=== PATIENT | female | born 1990 | race Caucasian/White ===

== ENCOUNTER → 2020-12-21 | Outpatient (CLI) | payer BC, MEDICAID ==
[~2020-12-21] MED LIST: TOPAMAX 100MG100 M1 PO
== END ==
LOC: COL.RAD 12-05 12:45
DX: N30.20 Other chronic cystitis without hematuria (principal)

== ENCOUNTER 2021-01-08 20:47 | Emergency (ER) | payer BC, MEDICAID ==
[~2021-01-08] VITALS: Ht 165.1 cm; Wt 77.3 kg
[2021-01-08 21:20] VITALS: TEMP 97.8
[2021-01-08 23:47] LABS: BASO # 0.1 (0.0-0.2); BASO % 0.9 % (0.0-2.0); EOS # 0.4 (0.0-0.7); EOS % 3.6 % (0-4.0); GRAN # 5.5 (1.4-6.5); HEMATOCRIT 38.9 % (37.0-47.0); HEMOGLOBIN 12.9 g/dl (12.5-16.0); LYMPH % 31.2 % (20.0-51.0); MEAN CELL VOLUME 93 fl (80.0-100.0); MEAN CORPUSCULAR HEMOGLOBIN 31 pg (27.0-31.0); MEAN CORPUSCULAR HGB CONC 33 g/dl (33.0-37.0); MEAN PLATELET VOLUME 9.9 fl (7.4-10.4); MONO # 0.7 (0.1-0.6); PLATELET COUNT 224 K/mm3 (130-400); RED BLOOD COUNT 4.17 M/mm3 (4.10-5.30); REDCELL DISTRIBUTION WIDTH-CV 13.2 % (11.5-14.5)
[2021-01-09] MEDS ORDERED: TOPAMAX 100MG100 M1 PO (00:04)
[2021-01-09 00:59] VITALS: BP 112/67; PULSE 82
== END 2021-01-09 01:02 | disposition home or self-care (01) ==
LOC: COL.ER 20:47
PROVIDERS: Personal Emergency Response Attendant
DX: O20.0 Threatened abortion (principal); G40.909 Epilepsy, unspecified, not intractable, without status epilepticus; Z79.899 Other long term (current) drug therapy; Z3A.01 Less than 8 weeks gestation of pregnancy